=== PATIENT | male | born 1960 | race Two or more races ===

== ENCOUNTER 2016-05-19 02:45 | Emergency (ER) | payer OTHER ==
[~2016-05-19] VITALS: Ht 175.3 cm; Wt 72.6 kg
[2016-05-19 02:51] VITALS: BP 149/92
== END 2016-05-19 03:13 | disposition home or self-care (01) ==
LOC: ER 02:45
DX: M54.12 Radiculopathy, cervical region (principal)
CPT/HCPCS: 99283; A4606; Z7610

== ENCOUNTER 2016-06-01 06:11 | Emergency (ER) | payer SELFPAY ==
[~2016-06-01] VITALS: Ht 177.8 cm; Wt 72.6 kg
[2016-06-01 06:16] VITALS: BP 139/91
== END 2016-06-01 06:56 | disposition home or self-care (01) ==
LOC: ER 06:14
DX: M54.12 Radiculopathy, cervical region (principal); F43.9 Reaction to severe stress, unspecified
CPT/HCPCS: 99283; A4606; Z7610

== ENCOUNTER 2016-11-24 20:20 | Inpatient (IN) | payer BC ==
[~2016-11-24] VITALS: Ht 175.3 cm; Wt 73.6 kg
--- NOTE | 2016-11-24 20:30 | NUR ---
56 YO MALE BB SELF. PT IS ALERT X 3, C/O CHEST PAIN. PT AMBULAED TO ER BED WITH STEADY GAIT, SKIN WARM AND DRY, RR EVEN AND UNLABORED. PT GOWNED, PLACE DON BUOY TENDER. AWAITING ORDERS FROM PROVIDER
[2016-11-24] MEDS ORDERED: MORPHINE SULFATE INJ 2 MG/ML DISP.SYRIN IV ONE (21:00)
[2016-11-24] MEDS ORDERED: ONDANSETRON HCL/PF 4 MG/2 ML VIAL IVP ONE (21:00)
[2016-11-24] MEDS ORDERED: NITROGLYCERIN 0.1 MG/HR PATCH.TD24 TD SCH (21:00)
[2016-11-24] MEDS ORDERED: ASPIRIN 325 MG TABLET PO ONE (21:00)
[2016-11-24] MEDS ORDERED: ASPIRIN EC 325 MG TABLET.DR PO ONE (21:01)
[2016-11-24] MEDS ORDERED: MORPHINE SULFATE INJ 2 MG/ML DISP.SYRIN ONE (21:01)
[2016-11-24] MEDS ORDERED: ONDANSETRON HCL/PF 4 MG/2 ML VIAL ONE (21:01)
[2016-11-24 21:07] LABS: BASOPHILS # (AUTO) 0.1 /CMM (0.0-0.2); BASOPHILS % (AUTO) 1.2 % (0.0-2.0); EOSINOPHILS # (AUTO) 0.4 /CMM (0.0-0.7); HEMATOCRIT 41 % (39-51); HEMOGLOBIN 13.8 g/dL (13.5-17.5); LYMPHOCYTES # (AUTO) 3.4 /CMM (0.8-4.8); LYMPHOCYTES % (AUTO) 43.7 % (20.0-44.0); MEAN CORPUSCULAR HEMOGLOBIN 29 PG (26.0-33.0); MEAN CORPUSCULAR HGB CONC 33 g/dl (31.0-36.0); MEAN CORPUSCULAR VOLUME 88 fL (80-96); MONOCYTES # (AUTO) 0.5 /CMM (0.1-1.30); NEUTROPHILS # (AUTO) 3.4 /CMM (1.8-8.9); NEUTROPHILS % (AUTO) 44.1 % (43.0-81.0); PLATELET COUNT (AUTO) 235 /CMM (150-450); RDW COEFFICIENT OF VARIATION 12.6 (11.5-15.0); RED BLOOD CELL COUNT(AUTO) 4.71 MIL/uL (4.5-6.0); WHITE BLOOD COUNT (AUTO) 7.8 K/uL (4.3-11.0)
[2016-11-24] MEDS ORDERED: NITROGLYCERIN PACKET 1 GM PACKET ONE (21:09)
[2016-11-24 21:19] LABS: CALCIUM, SERUM 8.7 mg/dL (8.5-10.1); CARBON DIOXIDE 29 mmol/L (21-32); CHLORIDE 106 mmol/L (98-107); GLUCOSE 93 mg/dL (74-106); POTASSIUM 3.8 mmol/L (3.5-5.1); SODIUM SERUM 141 mmol/L (136-145); UREA NITROGEN, BLOOD 14 mg/dL (7-18)
[2016-11-24 21:22] LABS: INR 1.05 (0.87-1.13); PROTHROMBIN TIME 10.9 SECS (9.5-12.7)
[2016-11-24 21:30] LABS: ALANINE AMINOTRANSFERASE 21 U/L (12-78); ALBUMIN 3.9 g/dL (3.4-5.0); ALKALINE PHOSPHATASE 70 U/L (46-116); ASPARTATE AMINOTRANSFERASE 21 U/L (15-37); BILIRUBIN,DIRECT 0.1 mg/dL (0.0-0.2); BILIRUBIN,TOTAL 0.2 mg/dL (0.2-1.0); TOTAL PROTEIN, SERUM 7.2 g/dL (6.4-8.2)
[2016-11-24 21:38] LABS: TROPONIN I < 0.017 ng/mL (0.00-0.056)
--- NOTE | 2016-11-24 22:01 | NUR ---
PATIENT WILL BE ADMITTED INTO ROOM 327-2.
--- NOTE | 2016-11-24 22:05 | NUR ---
CALLED [employer] ONLINE MARKETING COORDINATOR WAS PAGED.
--- NOTE | 2016-11-24 22:17 | NUR ---
VIOLET TOOK REPORT FOR DAVIDE
--- NOTE | 2016-11-24 22:25 | NUR ---
DR ISAAC ON THE PHONE WITH DR SHAW.
[2016-11-24] MEDS ORDERED: MAGNESIUM HYDROXIDE 30 ML UDC PO PRN (22:30)
[2016-11-24] MEDS ORDERED: ZOLPIDEM TARTRATE 5 MG TABLET PO PRN (22:30)
[2016-11-24] MEDS ORDERED: Z GUARD REMEDY 2 OZ OINT TP PRN (22:30)
[2016-11-24] MEDS ORDERED: HYDROCODONE/APAP 5/325MG 1 EACH TABLET PO PRN (22:30)
[2016-11-24] MEDS ORDERED: MAG HYDROX/AL HYDROX/SIMETH 30 ML UDC PO PRN (22:30)
[2016-11-24] MEDS ORDERED: ONDANSETRON HCL/PF 4 MG/2 ML VIAL IVP PRN (22:30)
[2016-11-24] MEDS ORDERED: MORPHINE SULFATE INJ 2 MG/ML DISP.SYRIN IV PRN (22:30)
[2016-11-24] MEDS ORDERED: ACETAMINOPHEN 325 MG TABLET PO PRN (22:30)
[2016-11-24 22:40] VITALS: BP 142/92
--- NOTE | 2016-11-24 22:40 | NUR ---
TRANSPORTED PT TO TELE BED WITHOUT INCIDENT
--- NOTE | 2016-11-24 22:45 | NUR ---
RN OPEN NOTES RECEIVED PATIENT FROM ER VIA GURNEY, PATIENT ABLE TO AMBULATE TO BED WITH STEADY GAIT. A/O X4. NO SIGNS OF DISTRESS OR DISCOMFORT. BREATHING EVEN AND UNLABORED. IV ACCESS IN R HAND PATENT AND INTACT, NO SIGNS OF REDNESS OR INFILTRATION. ORIENTED PATIENT TO UNIT AND ROOM. ATTACHED TELE MONITORING WITH SR 82 NOTED. BED IN LOW LOCKED POSITION WITH SIDE RAILS X2. CALL LIGHT WITHIN REACH. WILL CONTINUE TO MONITOR.
[2016-11-24 23:13] VITALS: BP 142/92
[2016-11-25 02:00] VITALS: BP 133/84
[2016-11-25 06:35] LABS: BASOPHILS % (AUTO) 0.7 % (0.0-2.0); EOSINOPHILS # (AUTO) 0.4 /CMM (0.0-0.7); EOSINOPHILS % (AUTO) 5.3 % (0.0-6.0); HEMATOCRIT 43 % (39-51); HEMOGLOBIN 14.2 g/dL (13.5-17.5); LYMPHOCYTES # (AUTO) 2.8 /CMM (0.8-4.8); LYMPHOCYTES % (AUTO) 42.1 % (20.0-44.0); MEAN CORPUSCULAR HEMOGLOBIN 29 PG (26.0-33.0); MEAN CORPUSCULAR HGB CONC 33 g/dl (31.0-36.0); MEAN CORPUSCULAR VOLUME 88 fL (80-96); MONOCYTES # (AUTO) 0.4 /CMM (0.1-1.30); MONOCYTES % (AUTO) 6.4 % (2.0-12.0); NEUTROPHILS # (AUTO) 3.1 /CMM (1.8-8.9); NEUTROPHILS % (AUTO) 45.5 % (43.0-81.0); PLATELET COUNT (AUTO) 208 /CMM (150-450); RDW COEFFICIENT OF VARIATION 13.6 (11.5-15.0); RED BLOOD CELL COUNT(AUTO) 4.84 MIL/uL (4.5-6.0); WHITE BLOOD COUNT (AUTO) 6.7 K/uL (4.3-11.0)
[2016-11-25 06:47] LABS: CALCIUM, SERUM 8.8 mg/dL (8.5-10.1); CARBON DIOXIDE 32 mmol/L (21-32); CHLORIDE 108 mmol/L (98-107); CREATININE 0.9 mg/dL (0.6-1.3); GLUCOSE 91 mg/dL (74-106); MAGNESIUM 2.1 mg/dL (1.8-2.4); PHOSPHORUS 3.3 mg/dL (2.5-4.9); POTASSIUM 3.7 mmol/L (3.5-5.1); SODIUM SERUM 146 mmol/L (136-145); TROPONIN I < 0.017 ng/mL (0.00-0.056); UREA NITROGEN, BLOOD 13 mg/dL (7-18)
[2016-11-25 06:49] LABS: CHOLESTEROL 190 mg/dL (<200); HDL CHOLESTEROL 42 mg/dL (40-60); LDL 145 mg/dL (0-99); TRIGLYCERIDES 55 mg/dL (30-150)
--- NOTE | 2016-11-25 06:52 | NUR ---
RN CLOSING NOTES PATIENT RESTING IN BED, EASILY AROUSABLE TO NAME. A/O X4. NO SIGNS OF DISTRESS OR DISCOMFORT. BREATHING EVEN AND UNLABORED. IV ACCESS IN R HAND, PATENT AND INTACT, NO SIGNS OF REDNESS OR INFILTRATION. ON TELE MONITORING WITH SR 69 NOTED. DENIES ANY PAIN AT THIS TIME. NO SIGNIFICANT CHANGES THROUGH THE NIGHT. ALL NEEDS MET. BED IN LOW LOCKED POSITION WITH SIDE RAILS X2. CALL LIGHT WITHIN REACH. WILL CONTINUE TO MONITOR. Addendum: 11/25/16 at 0654 by JOHN HANNAH RN WILL ENDORSE TO AM SHIFT FOR DAVIDE.
[2016-11-25] MEDS ORDERED: PANTOPRAZOLE 40 MG TABLET.DR PO SCH (07:30)
--- NOTE | 2016-11-25 07:52 | NUR ---
[employer] NOTES RECEIVED PT. PT IS STABLE AND RESTING IN BED, DAUGHTER AT BEDSIDE. A/O X4. NO S/S OF SOB OR DISTRESS. PT DENIES ANY PRESENCE OF PAIN. IV ACCESS IS LOCATED ON RIGHT HAND 20G, CURRENTLY SL. SAFETY MEASURES IN PLACE, CALL LIGHT WITHIN REACH. WILL CONTINUE TO MONITOR.
[2016-11-25] MEDS ORDERED: ASPIRIN 81 MG TAB.CHEW PO SCH (09:00)
--- NOTE | 2016-11-25 12:00 | NUR ---
DISCHARGE NOTE PT DISCHARGED. ALL DISCHARGE TEACHING GIVEN TO PT, VERBALIZES UNDERSTANDING. PT VITAL SIGNS ARE STABLE, NO S/S OF SOB OR DISTRESS. PT DENIES ANY PAIN AT THIS TIME. PRESCRIPTION GIVEN TO PT. PT SIGNED BELONGINGS LIST AND DISCHARGE PAPERWORK. IV ACCESS REMOVED. PT IS BEING DISCHARGED TO FAMILY MEMBERS WHO ARE ACCOMPANYING HIM VIA PRIVATE CAR.
[2016-11-25] MEDS ORDERED: ATORVASTATIN 40 MG TABLET PO SCH (22:00)
== END 2016-11-25 12:05 | disposition home or self-care (01) | DRG 392 ==
LOC: ER 20:22 → TELE 22:10 → MED 11-25 11:45
PROVIDERS: ADMIT Internal Medicine; ATTEND Internal Medicine
DX: K21.9 Gastro-esophageal reflux disease without esophagitis (principal); E78.5 Hyperlipidemia, unspecified; Z86.010 Personal history of colon polyps; Z87.891 Personal history of nicotine dependence; Z82.49 Family history of ischemic heart disease and other diseases of the circulatory system; I20.8 Other forms of angina pectoris
CPT/HCPCS: 36415; 71010-TC; 80048-TC; 80061-TC; 80076-TC; 83735-TC; 84100-TC; 84484-TC; 85025-TC; 85730-TC; 87081-TC; A4606; J2270; J2405; Z7610

== ENCOUNTER 2019-09-02 21:46 | Emergency (ER) | payer BC ==
[~2019-09-02] VITALS: Ht 170.2 cm; Wt 74.8 kg
--- NOTE | 2019-09-02 21:58 | NUR ---
PT BIBSELF C/O LEFT SIDED BACK AND CHEST PRESSURE. PT STATES HE HAS BEEN ANXIOUS SINCE THIS MORNING. NO DIAPHORESIS. NO SOB. PT AAOX4, RESPIRATIONS EVEN AND UNLABORED ON RA W/ NAD NOTED. PT CONNECTED TO THE FLUORESCENT LAMP REPLACER AND POX
[2019-09-02 22:19] LABS: BASOPHILS # (AUTO) 0.1 /CMM (0.0-0.2); EOSINOPHILS % (AUTO) 5.2 % (0.0-6.0); HEMATOCRIT 43 % (39-51); HEMOGLOBIN 14.4 g/dL (13.5-17.5); LYMPHOCYTES % (AUTO) 43.8 % (20.0-44.0); MEAN CORPUSCULAR HGB CONC 34 g/dl (31.0-36.0); MEAN CORPUSCULAR VOLUME 90 fL (80-96); MONOCYTES # (AUTO) 0.4 /CMM (0.1-1.30); MONOCYTES % (AUTO) 6.3 % (2.0-12.0); NEUTROPHILS % (AUTO) 43.7 % (43.0-81.0); PLATELET COUNT (AUTO) 230 /CMM (150-450); RED BLOOD CELL COUNT(AUTO) 4.76 MIL/uL (4.5-6.0)
[2019-09-02 22:23] LABS: CALCIUM, SERUM 9.5 mg/dL (8.5-10.1); CARBON DIOXIDE 32 mmol/L (21-32); CHLORIDE 103 mmol/L (98-107); GLUCOSE 102 mg/dL (74-106); SODIUM SERUM 141 mmol/L (136-145); UREA NITROGEN, BLOOD 15 mg/dL (7-18)
--- NOTE | 2019-09-02 22:23 | NUR ---
XRAY AT BEDSIDE
--- NOTE | 2019-09-02 23:46 | NUR ---
AVIATION ELECTRICAL TECHNICIAN AT BEDSIDE FOR TROPONIN REDRAW
--- NOTE | 2019-09-02 23:47 | NUR ---
REPEAT EKG AT BEDSIDE
--- NOTE | 2019-09-03 00:45 | NUR ---
Patient discharged to home in stable condition. Written and verbal after care instructions given. Patient verbalizes understanding of instruction.IV removed. Catheter intact and site benign. Pressure and 4x4 applied to site. No bleeding noted.
[2019-09-03 00:46] VITALS: BP 134/74
== END 2019-09-03 00:46 | disposition home or self-care (01) ==
LOC: ER 21:56
DX: R07.89 Other chest pain (principal); R94.31 Abnormal electrocardiogram [ECG] [EKG]
CPT/HCPCS: 36415; 71045-TC; 80048-TC; 84484-TC; 85025-TC